=== PATIENT | female | born 1980 | race Caucasian/White ===

== ENCOUNTER 2024-09-25 14:48 | Emergency (ER) | payer MEDICAID, SELFPAY ==
[2024-09-25 14:49] VITALS: BMI 21.1
--- NOTE | 2024-09-25 14:55 | EKG_ITS ---
[facility] (Formerly [facility])[3] Test Date: 2024-09-25 Pat Name: ZACHERY JOHNSON Department: Room: - Gender: Female [employer]: : 1980 Requested By: ED Temporary Provider Order Number: [id number] Reading MD: ED Temporary Provider Measurements Intervals [place] Heart Rate: 113 P: 69 NH: 144 QRS: 42 QRSD: 84 T: 71 QT: 295 QTc: 405 Interpretive Statements SINUS TACHYCARDIA ABNORMAL RHYTHM ECG No previous ECG available for comparison /store/S0/[id number]/ecg/[id number].pdf
[2024-09-25 15:08] VITALS: BP 136/92; PULSE 144; RESP 22; TEMP 37.1; O2SAT 99
--- NOTE | 2024-09-25 15:19 | XR_ITS ---
Examination: PA lateral chest 2 views Technique: Upright PA lateral chest 2 views Exam date and time: Chest pain today. Findings: Suspicious for focus of parenchymal disease in the left upper lobe Normal heart size The osseous structures are intact Impression: Recommend AP lordotic chest follow-up to confirm parenchymal disease in the left upper lobe
--- NOTE | 2024-09-25 15:19 | PD.EDRME ---
Rapid Medical Screening Exam E Arrival date/time: 09/25/24 14:48 44-year-old female with no known medical history presents to the emergency room with a chief complaint of 10 out of 10 sternal chest pain that radiates down her left arm, palpitations x 1 hour. I have greeted and performed a focused initial assessment of this patient. A comprehensive ED assessment and evaluation of the patient, analysis of all test results, and completion of the medical decision making process will be conducted by additional ED providers. Chief Complaint: Chest Pain Vital signs: Vital Signs Temperature 98.8 F 09/25/24 15:08 Pulse Rate 144 H 09/25/24 15:08 Respiratory Rate 22 H 09/25/24 15:08 Blood Pressure 136/92 H 09/25/24 15:08 Pulse Oximetry (%) 99 09/25/24 15:08 Oxygen Delivery Method Room Air 09/25/24 15:08 Vital signs reviewed by provider: Yes
[2024-09-25 15:35] LABS: Basophils # (Auto) 0.1 Thou/mm3 (0.0-0.2); Basophils % (Auto) 1 % (0-2.5); Eosinophils # (Auto) 0.1 Thou/mm3 (0.0-0.5); Eosinophils % (Auto) 1 % (0-10); Hematocrit 42.4 % (36.0-46.0); Hemoglobin 14.8 g/dL (12.0-16.0); Immature Granulocytes % (Auto) 0 % (0-0); Immature Granulocytes Auto 0.07 Thou/mm3 (0.00-0.00); Lymphocytes # (Auto) 2.2 Thou/mm3 (1.0-4.8); Lymphocytes % (Auto) 13 % (10-50); Mean Corpuscular HGB Conc 34.9 g/dl (31.0-37.0); Mean Corpuscular Volume 89 fL (80-100); Monocytes # (Auto) 1.3 Thou/mm3 (0.0-0.8); Monocytes % (Auto) 8 % (0-12); Neutrophils # (Auto) 12.6 Thou/mm3 (1.8-7.7); Neutrophils % (Auto) 77 % (37-80); Nucleated Red Blood Cell % 0 /100 WBC (0); Platelet Count 345 Thou/mm3 (140-440); Red Blood Count 4.77 Miln/mm3 (4.00-5.20); White Blood Count 16.4 Thou/mm3 (3.6-11.0)
[2024-09-25 15:50] LABS: Collection Type, Urine Clean Catch
[2024-09-25 16:01] LABS: Bilirubin,Urine Negative (Negative); Blood,Urine Negative (Negative); Clarity,Urine Clear (Clear/Hazy); Color,Urine Yellow (Lt Yel-Yel); Glucose, Urine Negative (Negative); Ketones,Urine Negative (Negative); Leukocyte Esterase,Urine Negative (Negative); Nitrite,Urine Negative (Negative); Protein,Urine Trace (Neg - Trace); RBC,Urine 4 /hpf (0-3); Specific Gravity,Urine 1.016 (1.001-1.035); Squamous Epithelial Cell,Urine 1 /hpf (0-5); Urobilinogen,Urine Negative mg/dL (0.0-1.0); WBC,Urine 2 /hpf (0-5)
[2024-09-25 16:06] LABS: Partial Thromboplastin Time 25.9 Seconds (22.0-36.0); Prothrombin Time 11.3 Seconds (9.0-12.2)
[2024-09-25 16:09] LABS: B-Type Natriuretic Peptide < 20 pg/mL (0-100)
[2024-09-25 16:10] LABS: Amphetamine/Methamp Scrn,U Negative (Negative); Barbiturate Screen,Urine Negative (Negative); Benzodiazepines Screen,Urine Negative (Negative); Benzoylecgonine Screen, Ur Negative (Negative); Fentanyl Screen,Urine Negative (Negative); Opiate Screen,Urine Negative (Negative); THC Screen,Urine Positive (Negative)
[2024-09-25 16:22] LABS: Alanine Aminotransferase < 7 U/L (10-49); Albumin, Serum 4.4 gm/dL (3.5-5.0); Albumin/Globulin Ratio 1.8 (1.2-2.2); Alkaline Phosphatase 79 U/L (46-116); Anion Gap 9 (7-16); Aspartate Amino Transferase 12 U/L (0-34); BUN/Creatinine Ratio 11 Ratio (12-20); Bilirubin,Total 0.8 mg/dL (0.3-1.2); Blood Urea Nitrogen 9 mg/dL (9-23); Calcium 9.6 mg/dL (8.3-10.6); Calcium (Corrected) 9.6 mg/dL (8.5-10.1); Chloride 102 mMol/L (98-107); Creatinine (Component) 0.8 mg/dL (0.6-1.3); Estimated Creatinine Clearance 86.7 mL/min (>60); Globulin 2.4 gm/dL (2.3-3.5); Glucose 119 mg/dL (74-106); Magnesium 1.5 mg/dL (1.6-2.6); Osmolality,Calculated 271 (275-295); Potassium 3.8 mMol/L (3.4-5.1); Sodium 136 mMol/L (136-145); Total Protein 6.8 gm/dL (5.7-8.2); Troponin I < 0.002 ng/mL (0.0-0.045); eGFR > 60 See Note
[2024-09-25 19:57] VITALS: BP 154/95; PULSE 109; RESP 18; TEMP 36.4; O2SAT 96
--- NOTE | 2024-09-25 20:01 | EDNOTE_ITS ---
ED Chest Pain RME/HPI General Chief Complaint: Chest Pain Stated Complaint: CHEST PAIN Time Seen by Provider: 09/25/24 20:00 Arrival date/time: 09/25/24 14:48 Limitations: no limitations RME / HPI RME / HPI narrative: 09/25/24 14:48 44-year-old female with no known medical history presents to the emergency room with a chief complaint of 10 out of 10 sternal chest pain that radiates down her left arm, palpitations x 1 hour. I have greeted and performed a focused initial assessment of this patient. A comprehensive ED assessment and evaluation of the patient, analysis of all test results, and completion of the medical decision making process will be conducted by additional ED providers. DR. ARTHUR MAIN ED EVALUATION: 44 year old female presents to the Emergency Department with complaint of chest pain since 2 PM today. Pain is described as constant and aching and rated 10/10. No modifying factors reported at this time. Breathing exacerbates the pain. Associated symptoms include mild shortness of breath. PMHx: Denies any PMHx, surgeries, daily medications, or known allergies. Social Hx: Current smoker. Related Data Home Medications ?Medication ?Instructions ?Recorded ?Confirmed vit 122-ferrous fumarate 1 tab PO DAILY #0 ta bs 06/01/17 10/09/17 27 mg iron-folic acid 800 mcg tablet ( Multi) Allergies Allergy/AdvReac Type Severity Reaction Status Date / Time prochlorperazine Allergy Mild SLEPT FOR Verified 09/25/24 14:51 3 DAYS STRAIGHT dimenhydrinate AdvReac Intermediate SLEPT FOR Verified 09/25/24 14:51 3 STRAIGHT DAYS metoclopramide AdvReac Unknown SLEPT FOR Verified 09/25/24 14:51 3 DAYS Review of Systems Review of Systems Systems Reviewed: All systems reviewed, normal except as documented Narrative Review of Systems: GEN: No fever, no chills, no weight loss EYES: No discharge, no visual changes, no pain HEENT: No ear pain, no congestion, no sore throat PULM: + shortness of breath, no cough, no congestion CV: + chest pain, no dyspnea on exertion, no palpitations GI: No nausea, no vomiting, no diarrhea, no pain, no constipation : No frequency, no urgency and no dysuria MUSC/SKEL: No joint pain, no back pain SKIN: No rash PSYCH: No hallucinations, no depression HEME/LYMPH: No easy bleeding or bruising tendencies NEURO: No weakness, no headache Past Medical History Past Medical History NEUROLOGIC: Positive Migraine (NO RX MED); Negative Neurological Disorders CARDIAC: Positive Cardiac Arrhythmia (SVT) and Valvular Heart Disease; Negative Cardiac Disorders or Congestive Heart Failure RESPIRATORY: Negative Chronic Obstructive Pulmonary Disease (COPD) GASTROINTESTINAL: Positive Hepatitis (A AT 12 YRS OLD); Negative Gastrointestinal Disorders GENITOURINARY: Positive Genitourinary Disorders and Kidney Stones (HOSP FOR 24 HOURS AT 25 YRS OLD NO SURG); Negative Renal Disease REPRODUCTIVE: Positive Previous Pregnancies (X3) MUSCULOSKELETAL: Negative Musculoskeletal Disorders ENDOCRINE: Negative Endocrine Disorders, Diabetes Mellitus Type 1 or Diabetes Mellitus Type 2 HEMATOLOGIC: Negative Blood Disorders OTHER HISTORY: Positive Chicken Pox and Mumps; Negative Autoimmune Disease or Anesthesia Reactions Family History FAMILY HISTORY: Positive Family Psychiatric Problems (MOTHER), Family Cardiac Disorders (FATHER) and Family Surgery (MOTHER) Social History SMOKING STATUS: Current every day smoker ED Exam General Limitations: Present no limitations General appearance: Present alert and in no apparent distress Head Head exam: Present atraumatic, normocephalic and normal inspection Eye Eye exam: Present normal appearance, PERRL and EOMI ENT ENT exam: Present normal exam, normal oropharynx and mucous membranes moist Neck Neck exam: Present normal inspection, full ROM and trachea midline Chest Chest inspection: Present normal inspection and symmetric chest wall rise Respiratory Respiratory exam: Present normal lung sounds bilaterally Cardiovascular Cardiovascular exam: Present regular rate, normal rhythm and normal heart sounds Abdominal Exam Abdominal exam: Present soft and normal bowel sounds Extremities Exam Extremities exam: Present normal inspection and full ROM Back Exam Back exam: Present normal inspection and full ROM Neurological Exam Neurological exam: Present alert, oriented X3 and CN II-XII intact Psychiatric Psychiatric exam: Present normal affect and normal mood Skin Skin exam: Present warm, dry, intact and normal color Course Quality Measures none Orders Category Date Time Status EKG (ED ONLY) *Do not use* NOW Care 09/25/24 14:55 Completed EKG (ED Only) Stat Exams 09/25/24 14:55 Draft XR chest 2V Stat Exams 09/25/24 15:19 Completed B-Type Natriuretic Peptide Stat Lab 09/25/24 15:25 Completed CBC Stat Lab 09/25/24 15:25 Completed Comprehensive Metabolic Panel Stat Lab 09/25/24 15:25 Completed D-Dimer Stat Lab 09/25/24 19:58 Completed Drug Screen,Urine Stat Lab 09/25/24 15:30 Completed Magnesium Stat Lab 09/25/24 15:25 Completed Partial Thromboplastin Time Stat Lab 09/25/24 15:25 Completed Prothrombin Time with INR Stat Lab 09/25/24 15:25 Completed Troponin I Stat Lab 09/25/24 15:25 Completed Troponin I Stat Lab 09/25/24 19:55 Completed Urinalysis Stat Lab 09/25/24 15:30 Completed Ketorolac Inj [Toradol Inj] Med 09/25/24 21:47 Discontinued 30 mg IVP X1 ONE Magnesium Oxide [Mag-Ox 400] Med 09/25/24 21:48 Discontinued 400 mg PO X1 ONE Sodium Chloride 0.9% 1000 ml [Ns] 1,000 ml Med 09/25/24 20:02 Discontinued IV 999 mls/hr Sodium Chloride 0.9% 1000 ml [Ns] 1,000 ml Med 09/25/24 21:23 Discontinued IV 999 mls/hr Reevaluation(s) Reevaluation #1: Patient given IV fluids. Repeat heart rate is 84. Vital Signs Vital signs: Vital Signs Temperature 98.8 F 09/25/24 15:08 Pulse Rate 144 H 09/25/24 15:08 Respiratory Rate 22 H 09/25/24 15:08 Blood Pressure 136/92 H 09/25/24 15:08 Pulse Oximetry (%) 99 09/25/24 15:08 Oxygen Delivery Method Room Air 09/25/24 15:08 Procedures -ED EKG Interpretation #1: Date of EK09/25/24 Time of EK:06 Rate: 113 Interpretation: Interpreted by me Additional EKG comment: sinus tachycardia, rate 113, QTc 405 Smoking Cessation Time Spent Discussing Smoking Cessation w/Patient (min): 3 Patient Acknowledges Need for Cessation: Yes Additional Comments: The patient was counseled as to the multiple risks to their health from continued use of tobacco products. It was explained that continuing to smoke may lead to multiple short and terminal system operator negative health consequences, including but not limited to mouth/esophageal/lung cancer, COPD, and heart disease. The patient states they understand these risks, and also understand the options and resources available to them to help them stop smoking. Nicotine replacement therapy, local hotlines, and local resources were discussed as viable options for helping them stop their tobacco use. The total time spent counseling the patient regarding tobacco cessation was 3 minutes. Chest Pain MDM Narrative MDM Narrative:: I, Tameka Richards, am scribing for and in the presence of Dr. Arthur. Patient data External records reviewed:: None Clinical information provided by:: patient Social determinants that could affect healthcare access:: other (specify) (Current smoker.) Patient has the following chronic illnesses:: Denies any PMHx, surgeries, daily medications, or known allergies. How is presenting disease/condition affected by chronic disease/condition?: no chronic disease Evaluation data The following diagnostics were reviewed and interpreted by me:: lab results, radiology exam(s) and EKG tracing(s) Lab and/or radiology exams considered but not ordered:: none Interpretation Summary: Procedure(s): XR chest 2V Accession Number(s): [id number] cc: Jason Sutherland; Sammy Monroe MD; Juan Denis MD~ Examination: PA lateral chest 2 views Technique: Upright PA lateral chest 2 views Exam date and time: Chest pain today. Findings: Suspicious for focus of parenchymal disease in the left upper lobe Normal heart size The osseous structures are intact Impression: Recommend AP lordotic chest follow-up to confirm parenchymal disease in the left upper lobe Dictated By: Juan Denis MD Medications / Prescriptions Medications or Prescriptions considered but not ordered:: none Medication administrations:: Medication Administration History Discontinued Medications Sodium Chloride (Ns) 1,000 mls @ 999 mls/hr IV .Q1H1M ONE Stop: 09/25/24 21:02 Last Admin: 09/25/24 21:01 Dose: 999 mls/hr Documented By: NENA Sodium Chloride (Ns) 1,000 mls @ 999 mls/hr IV .Q1H1M ONE Stop: 09/25/24 22:23 Last Admin: 09/25/24 21:56 Dose: Not Given Documented By: NENA Non-Admin Reason: Duplicate Medication on eMAR Ketorolac Tromethamine (Ketorolac Inj 30 Mg/Ml Vial) 30 mg IVP X1 ONE Stop: 09/25/24 21:48 Last Admin: 09/25/24 21:57 Dose: 30 mg Documented By: NENA Magnesium Oxide (Magnesium Oxide 400 Mg Tablet) 400 mg PO X1 ONE Stop: 09/25/24 21:49 Last Admin: 09/25/24 21:57 Dose: 400 mg Documented By: NENA see above Consultations Consultation(s) initiated? (list below): No Diagnosis Chest Pain Differential Diagnosis: atypical chest pain, costochondritis, chest pain and biliary colic Most likely diagnosis given after review of the tests above:: see below Admission Indicated Admission indicated?: not indicated Admission Request Was there a request for admission?: No Disposition Plan Disposition Plan: Discharge Discharge Attestation Discharge Attestation: The patient and all family members were given an opportunity to ask questions and understood the discharge instructions. Discharge instructions specifically effects, indications for sooner follow up or return to the emergency department, and the expected course of current diagnosis. Patient condition: Stable Discharge Plan Plan Patient Disposition: HOME (Self Care) Patient condition on transfer: Stable Prescriptions/Referrals Prescriptions/Med Rec: No Action [id number] acid [ Multi] 27-800 mg-mcg Tablet 1 tab PO DAILY Qty: 0 Referrals: Sammy Monroe MD [Primary Care Provider] - In 1 week Problem List Clinical Impression: Tachycardia Patient/Caregiver Discharge Instructions Education Materials: Understanding Tachycardia Additional Instructions: Please stay hydrated with Pedialyte and Gatorade. Return to the emergency department for worsening symptoms, or any other concern Print Language: Spanish Stand Alone Forms: Harini Award Info., Patient Portal Info Letter
[2024-09-25 20:26] LABS: Troponin I < 0.020 ng/mL (0.0-0.045)
[2024-09-25 20:46] LABS: D-Dimer < 250 ng/mL (<600)
[2024-09-25] MEDS: SODIUM CHLORIDE 0.9% 1000 ML 1,000 ML 999 ML IV (21:01)
[2024-09-25] MEDS: KETOROLAC INJ 30 MG/ML VIAL IVP (21:57)
[2024-09-25] MEDS: MAGNESIUM OXIDE 400 MG TABLET PO (21:57)
[2024-09-25 22:00] VITALS: BP 124/81; PULSE 79; RESP 18; TEMP 36.6; O2SAT 96
== END 2024-09-25 22:26 | disposition home or self-care (01) ==
PROVIDERS: Nurse Practitioner Family; Nurse Practitioner Primary Care; Emergency Provider Emergency Medicine; PCP Family Medicine
DX: R00.0 Tachycardia, unspecified (principal); R07.2 Precordial pain
CPT/HCPCS: 36415; 71046; 80053; 80307; 81001; 83735; 83880; 84484; 85025; 85379; 85610; 85730; 93005; 96374; 99284; J1885; J7030; A9270

== ENCOUNTER 2025-06-21 09:44 | Emergency (ER) | payer MEDICAID, SELFPAY ==
[2025-06-21 10:08] VITALS: BP 138/83; PULSE 72; RESP 18; TEMP 36.7; O2SAT 95; BMI 20.3
--- NOTE | 2025-06-21 10:46 | XR_ITS ---
EXAMINATION: XR foot comp RT min 3V ORDERING PROVIDER: Leni Mart NP HISTORY: trauma TECHNIQUE: 3 radiographs of the right foot were obtained. COMPARISON: Concurrent right ankle radiographs. FINDINGS: BONES: No acute fracture or dislocation. ALIGNMENT: Normal. JOINTS: Normal. BONY MINERALIZATION: Normal. SOFT TISSUES: Mild swelling. IMPRESSION: Soft tissue swelling without acute bony findings.
--- NOTE | 2025-06-21 10:46 | XR_ITS ---
EXAMINATION: XR ankle comp RT min 3V ORDERING PROVIDER: Leni Mart NP HISTORY: trauma TECHNIQUE: 3 radiographs of the right ankle were obtained. COMPARISON: None. FINDINGS: BONES: No acute fracture or dislocation. ALIGNMENT: Normal. JOINTS: Normal. BONY MINERALIZATION: Normal. SOFT TISSUES: Mild soft tissue, most pronounced about the lateral ankle IMPRESSION: Soft tissue swelling without acute bony findings.
--- NOTE | 2025-06-21 10:46 | PD.EDANKLE ---
Lower Extremity Injury RME/HPI General Chief Complaint: Ankle/Foot Injury Stated Complaint: r ankle pain s/p injury Time Seen by Provider: 06/21/25 09:50 Arrival date/time: 06/21/25 09:44 This is a 45-year-old female that comes into the emergency room with complaints of right ankle pain. Patient states that she thinks she rolled her ankle while walking yesterday. Patient has lateral ankle swelling. Patient has pain with range of motion. Patient denies any other injuries. Related Data Home Medications ?Medication ?Instructions ?Recorded ?Confirmed vit 122-ferrous fumarate 1 tab PO DAILY #0 tabs 06/01/17 10/09/17 27 mg iron-folic acid 800 mcg tablet ( Multi) Allergies Allergy/AdvReac Type Severity Reaction Status Date / Time prochlorperazine Allergy Mild SLEPT FOR Verified 06/21/25 09:46 3 DAYS STRAIGHT dimenhydrinate AdvReac Intermediate SLEPT FOR Verified 06/21/25 09:46 3 STRAIGHT DAYS metoclopramide AdvReac Unknown SLEPT FOR Verified 06/21/25 09:46 3 DAYS Review of Systems Review of Systems Systems Reviewed: All systems reviewed, normal except as documented Past Medical History Past Medical History NEUROLOGIC: Positive Migraine (NO RX MED); Negative Neurological Disorders CARDIAC: Positive Cardiac Arrhythmia (SVT) and Valvular Heart Disease; Negative Cardiac Disorders or Congestive Heart Failure RESPIRATORY: Negative Chronic Obstructive Pulmonary Disease (COPD) GASTROINTESTINAL: Positive Hepatitis (A AT 12 YRS OLD); Negative Gastrointestinal Disorders GENITOURINARY: Positive Genitourinary Disorders and Kidney Stones (HOSP FOR 24 HOURS AT 25 YRS OLD NO SURG); Negative Renal Disease REPRODUCTIVE: Positive Previous Pregnancies (X3) MUSCULOSKELETAL: Negative Musculoskeletal Disorders ENDOCRINE: Negative Endocrine Disorders, Diabetes Mellitus Type 1 or Diabetes Mellitus Type 2 HEMATOLOGIC: Negative Blood Disorders OTHER HISTORY: Positive Chicken Pox and Mumps; Negative Autoimmune Disease or Anesthesia Reactions Family History FAMILY HISTORY: Positive Family Psychiatric Problems (MOTHER), Family Cardiac Disorders (FATHER) and Family Surgery (MOTHER) Social History SMOKING STATUS: Current every day smoker ED Exam Narrative Physical exam: VITAL SIGNS: Reviewed. GENERAL APPEARANCE: Alert and interactive, follows commands, no acute distress HEAD AND FACE: Non-traumatic. ENT: PERRL, conjuctiva pink and clear, eyelid no trauma, Mucous membrane moist. NECK: Supple, nontender, no nuchal rigidity. CHEST: No tenderness, no crepitus, no paradoxical movement, no retractions. LUNGS: breathing even and unlabored HEART: Regular rate, cap refill less than 2 seconds ABDOMEN: Soft, nondistended, no guarding, nontender, no rebound, no masses, NEUROLOGICAL: Gross motor function intact sensory function intact, Appropriate for age. MUSCULOSKELETAL: low back nontender, full range of motion. EXTREMITIES: No redness no swelling no skin breakdown on bilateral foot and leg. Distal neurovascular status intact bilateral foot SKIN: Color pink, dry, mild swelling to lateral right ankle pain with range of motion. Mild pain to palpation to lateral ankle. Course Orders Category Date Time Status XR ankle comp RT min 3V Stat Exams 06/21/25 10:46 Completed XR foot comp RT min 3V Stat Exams 06/21/25 10:46 Completed TET,DIP/PERT AC (Adult)-Tdap [Boostrix Adult (Tdap) Med 06/21/25 10:46 Discontinued Vacc] 0.5 ml IMI .ONCE ONE Vital Signs Vital signs: Vital Signs Temperature 98.0 F 06/21/25 10:08 Pulse Rate 72 06/21/25 10:08 Respiratory Rate 18 06/21/25 10:08 Blood Pressure 138/83 H 06/21/25 10:08 Pulse Oximetry (%) 95 06/21/25 10:08 Oxygen Delivery Method Room Air 06/21/25 10:08 Extremity Injury, Lower MDM Narrative MDM Narrative:: foot: FINDINGS: BONES: No acute fracture or dislocation. ALIGNMENT: Normal. JOINTS: Normal. BONY MINERALIZATION: Normal. SOFT TISSUES: Mild swelling. IMPRESSION: Soft tissue swelling without acute bony findings. ankle: FINDINGS: BONES: No acute fracture or dislocation. ALIGNMENT: Normal. JOINTS: Normal. BONY MINERALIZATION: Normal. SOFT TISSUES: Mild soft tissue, most pronounced about the lateral ankle IMPRESSION: Soft tissue swelling without acute bony findings. Today patient had xrays. There was no acute fracture seen. Exam appeared unremarkable. I explained to patient at length that if there was continued pain to this area or worsened to come back to ED or see primary provider for more xrays or further testing such as CT scan or MRI. X rays are not perfect and sometimes serial films needed. Patient verbalized understanding. Patient states they will follow up with primary provider in 1-2 days or come back to ED if symptoms change or worsen. Medications / Prescriptions Medication administrations:: Medication Administration History Discontinued Medications Diphtheria/Tetanus/Acell Pertussis (Diphth,Pertuss(Acell),Tet Vac 0.5 Ml Syr- Adult) 0.5 ml IMi .ONCE ONE Stop: 06/21/25 10:47 Discharge Plan Plan Patient Disposition: HOME (Self Care) Patient condition on transfer: Stable Prescriptions/Referrals Prescriptions/Med Rec: No Action 298-mkvl-tukxc acid [ Multi] 27-800 mg-mcg Tablet 1 tab PO DAILY Qty: 0 Referrals: Sammy Monroe MD [Primary Care Provider, Family Practice] - In 1 week Problem List Clinical Impression: Ankle contusion Patient/Caregiver Discharge Instructions Discharge Activity: activity as tolerated Education Materials: Bruises (Contusions) Additional Instructions: Follow up with primary provider in 1-2 days. Come back to ED if symptoms change or worsen Print Language: Mexican Stand Alone Forms: Harini Award Info., Patient Portal Info Letter PA/DEPUTY CLERK OF SUPERIOR COURT Supervising Physician PA/DEPUTY CLERK OF SUPERIOR COURT Supervising Physician: melanie
[2025-06-21] MEDS: DIPHTH,PERTUSS(ACELL),TET VAC 0.5 ML SYR- ADULT IMi (11:36)
== END 2025-06-21 11:48 | disposition home or self-care (01) ==
PROVIDERS: Emergency Provider Emergency Medicine; PCP Family Medicine
DX: S90.00XA Contusion of unspecified ankle, initial encounter (principal); X50.1XXA Overexertion from prolonged static or awkward postures, initial encounter; Y93.01 Activity, walking, marching and hiking
CPT/HCPCS: 73610; 73630; 90471; 90715; 99282